=== PATIENT | male | born 1945 ===

== ENCOUNTER 2016-12-24 21:40 | Observation (INO) | payer MEDICARE, MEDICAID ==
[2016-12-24 21:40] VITALS: PULSE 71
[2016-12-24 21:49] VITALS: BMI 25.8
[2016-12-24] MEDS ORDERED: Albuterol-Ipratrop 3 mg / 0.5 (3 ml) UD IH STA (21:54)
[2016-12-24] MEDS ORDERED: DiphenhydrAMINE 50 mg/ml Inj IVP ONE (21:57)
[2016-12-24] MEDS ORDERED: HYDROmorphone 1 mg/ml ISec IVP STA (21:57)
[2016-12-24 22:20] LABS: ADD MANUAL DIFF? NO
[2016-12-24 22:28] LABS: BASO # 0.01 K/mm3 (0.0-2.0); BASO % 0.2 % (0.0-3.0); EOS % 0.2 % (1.5-5.0); GRAN # 3.88 (1.4-6.5); GRAN % 70.5 % (50.0-68.0); HEMATOCRIT 38.5 % (42.0-52.0); LYMPH # 1.2 (1.2-3.4); LYMPH % 20.9 % (22.0-35.0); MEAN CELL VOLUME 86.3 fL (80.0-105.0); MEAN CORPUSCULAR HEMOGLOBIN 31.8 pg (25.0-35.0); MEAN CORPUSCULAR HGB CONC 36.9 g/dl (31.0-37.0); MEAN PLATELET VOLUME 11.1 fl (7.0-11.0); MONO # 0.5 (0.1-0.6); MONO % 8.2 % (1.0-6.0); PLATELET COUNT 152 10^3/uL (120.0-450.0); RED CELL DISTRIBUTION WIDTH 12.8 % (11.5-14.5); WHITE BLOOD COUNT 5.5 10^3/ul (4.5-11.0)
--- NOTE | 2016-12-24 22:31 | ED PDOC ---
Arrival/HPI - General Chief Complaint: Abdominal Pain Time Seen by Provider: 12/24/16 21:41 Historian: Patient - History of Present Illness Narrative History of Present Illness (Text): 12/24/16 22:23 Ephraim Villarreal is a 71 year old male, with a history of bronchitis, pneumonia, alcohol abuse, colon polyps, and diverticulosis, presents to the emergency department complaining of abdominal pain associated with nausea and vomiting for past hour. Patient also reports of some difficulty breathing. Denies any chest pain. Admits to drinking alcohol yesterday. Denies fever, chills, headache , dizziness, diarrhea, back pain, urinary symptoms, or any other complaints at this time. Time/Duration: 1 hour Symptom Course: Unchanged Activities at Onset: Light Context: Home Past Medical History - Provider Review Nursing Documentation Reviewed: Yes - Past History Past History: No Previous - Infectious Disease Hx of Infectious Diseases: None - Tetanus Immunization Tetanus Immunization: Unknown - Past Medical History Past Medical History: No Previous - Cardiac Hx Pacemaker: No - Pulmonary Hx Bronchitis: Yes Hx Pneumonia: Yes - Neurological Hx Paralysis: No - HEENT Hx HEENT Disorder: Yes (Wears glasses. Hx of left eye sx.) - Renal Hx Renal Disorder: No - Endocrine/Metabolic Hx Endocrine Disorders: No - Hematological/Oncological Hx Blood Transfusions: No Hx Blood Transfusion Reaction: No - Integumentary Hx Dermatological Disorder: No Other/Comment: TATTOOS - Musculoskeletal/Rheumatological Hx Musculoskeletal Disorders: Yes - Gastrointestinal Other/Comment: colon polyps,diverticulosis - Genitourinary/Gynecological Hx Genitourinary Disorders: No - Psychiatric Hx Emotional Abuse: No Hx Physical Abuse: No Hx Substance Use: No - Surgical History Hx Orthopedic Surgery: Yes (Left foot sx.) Other/Comment: COLON POLYPS REMOVED - Anesthesia Hx Anesthesia: Yes Hx Anesthesia Reactions: No Hx Malignant Hyperthermia: No - Suicidal Assessment Feels Threatened In Home Enviroment: No Family/Social History - Physician Review Nursing Documentation Reviewed: Yes Family/Social History: No Known Family HX Smoking Status: Current Some Days Smoker Hx Alcohol Use: Yes (QUIT 11/26) Hx Substance Use: No Hx Substance Use Treatment: Yes (history of ETOH, no use x 1 year) Allergies/Home Meds Allergies/Adverse Reactions: Allergies oxycodone HCl [From Percocet] Allergy (Verified 12/24/16 21:51) RASH Home Medications: Home Meds Medication Instructions Recorded Confirmed No Known Home Med 09/27/16 12/24/16 Review of Systems - Physician Review All systems were reviewed & negative as marked: Yes - Review of Systems Constitutional: Normal. absent: Fatigue, Fevers Respiratory: SOB. absent: Cough, Sputum Cardiovascular: absent: Chest Pain Gastrointestinal: Abdominal Pain, Nausea, Vomiting. absent: Diarrhea Neurological: Normal. absent: Headache, Dizziness Psychiatric: Normal Physical Exam Vital Signs Reviewed: Yes Vital Signs Temp Pulse Resp BP Pulse Ox 12/25/16 02:29 98.0 F 80 16 98 12/25/16 01:11 98.0 F 78 16 143/89 97 12/24/16 23:42 97.8 F 80 16 145/89 98 Temperature: Afebrile Blood Pressure: Normal Pulse: Regular Respiratory Rate: Normal Appearance: Positive for: Well-Appearing, Non-Toxic, Comfortable Pain Distress: None Mental Status: Positive for: Alert and Oriented X 3 - Systems Exam Head: Present: Atraumatic, Normocephalic Extroacular Muscles: Present: EOMI Conjunctiva: Present: Normal Respiratory/Chest: Present: Decreased Breath Sounds (decreased breath sounds bilaterally ). No: Respiratory Distress, Accessory Muscle Use Cardiovascular: Present: Regular Rate and Rhythm, Normal S1, S2. No: Murmurs Abdomen: Present: Tenderness (left upper quadrant tenderness ), Normal Bowel Sounds. No: Distention, Peritoneal Signs Upper Extremity: Present: Normal Inspection. No: Cyanosis, Edema Lower Extremity: Present: Normal Inspection. No: Edema Neurological: Present: GCS=15, CN II-XII Intact, Speech Normal Skin: Present: Warm, Dry, Normal Color. No: Rashes Psychiatric: Present: Alert, Oriented x 3, Normal Insight, Normal Concentration Medical Decision Making ED Course and Treatment: 12/24/16 22:33 Impression: A 71 year old male who presents to the ed for 1 hour duration of abdominal pain associated with nausea and vomiting. Also notes of mild difficulty breathing. Plan: -- EKG -- CT abdomen pelvis -- Labs, cardiac enzymes -- CXR -- Benadryl -- Dilaudid -- Duoneb -- Urinalysis Progress Notes: 12/24/16 22:35 EKG reviewed by me: NSR @ 78 bpm with premature supraventricular complexes. Left axis deviation. Right bundle branch block. 12/25/16 00:35 CT abdomen pelvis reviewed: IMPRESSION: No acute process in the abdomen and pelvis. Normal appendix is seen. Scattered diverticulosis without diverticulitis. No obstructive uropathy. Fatty liver, with cirrhotic changes associated and recannulization of the periumbilical vein. 12/25/16 01:26 Case discussed with who is aware and agrees with the plan to admit patient to [facility] [place] for abdominal pain. Accepts patient under his service. - Lab Interpretations Lab Results: 12/24/16 22:15 12/24/16 22:15 Lab Results 12/25/16 00:02: Urine Color Yellow, Urine Appearance Slight-cloudy, Urine pH 6.0 , Ur Specific [place] >= 1.030, Urine Protein Trace H, Urine Glucose (UA) Negative, Urine Ketones >=80, Urine Blood Large H, Urine Nitrate Negative, Urine Bilirubin Negative, Urine Urobilinogen 0.2, Ur Leukocyte Esterase Negative , Urine RBC 5 - 10, Urine WBC 0 - 2, Ur Epithelial Cells 0 - 2 12/24/16 22:15: WBC 5.5 D, RBC 4.46, Hgb 14.2, Hct 38.5 L, MCV 86.3, MCH 31.8, MCHC 36.9, RDW 12.8, Plt Count 152, MPV 11.1 H, Gran % 70.5 H, Lymph % (Auto) 20.9 L, [place] % (Auto) 8.2 H, Eos % (Auto) 0.2 L, Baso % (Auto) 0.2, Gran # 3.88 , Lymph # 1.2, [place] # 0.5, Eos # 0.0, Baso # 0.01, PT 11.8, INR 1.09 H, APTT 24.6, Sodium 137, Potassium 3.5 L, Chloride 95 L, Carbon Dioxide 24, Anion Gap 22 H, BUN 16, Creatinine 0.8, Est GFR ( Amer) > 60, Est GFR (Non-Af Amer ) > 60, Random Glucose 78, Calcium 8.9, Total Bilirubin 1.2, AST 38, ALT 33, Alkaline Phosphatase 72, Lactate Dehydrogenase 470, Total Creatine Kinase 375 H , CK-MB (CK-2) 5.6 H, CK-MB (CK-2) % 1.5 L, Troponin I 0.02 D, Total Protein 7.7, Albumin 4.3, Globulin 3.5, Albumin/Globulin Ratio 1.2, Amylase 101, Lipase 54 I have reviewed the lab results: Yes - RAD Interpretation Narrative RAD Interpretations (Text): EXAM: CT Abdomen and Pelvis Without Intravenous Contrast FINDINGS: Artifacts: Motion artifact does moderately limit the sensitivity of this examination. Lower thorax: There is severe atherosclerotic calcification of the coronary arteries. There is a pulmonary parenchymal calcification consistent with remote granulomatous organism exposure located in the right base lung bases otherwise clear. ABDOMEN: Liver: There is a nodular contour to the liver and hypertrophy of the caudate lobe, consistent with cirrhosis. There is a diffuse moderate decrease in hepatic parenchymal density, consistent with moderate fatty infiltration. Gallbladder and bile ducts: Unremarkable. No calcified stones. No ductal dilation. No significant wall thickening. Pancreas: The pancreas appears normal. No ductal dilation. Spleen: The spleen is normal. Adrenals: Unremarkable. No mass. Kidneys and ureters: No obstructing renal stones or hydronephrosis. No solid mass. Normal appearance of both ureters, and renal pelvises. Stomach and bowel: The stomach is normal. Scattered colonic diverticulosis without definite diverticulitis. The small bowel loops appear within normal limits, no signs of wall thickening, mucosal edema, or bowel distention. Appendix: A normal appendix is identified. PELVIS: Bladder: Unremarkable. No stones. Reproductive: Unremarkable as visualized. ABDOMEN and PELVIS: Intraperitoneal space: Unremarkable. No free air. No significant fluid collection. Bones/joints: The spine demonstrates moderate degenerative changes at multiple levels. Benign bony lesion with matrix calcification of the proximal left femur enchondroma versus hemangioma unchanged from prior exam. No acute fracture. No dislocation. Soft tissues: Small fat-containing paraumbilical hernia is present. There is recannulization of the periumbilical vein is present. Vasculature: The aorta demonstrates moderate atherosclerotic calcification. Lymph nodes: Unremarkable. No enlarged lymph nodes. IMPRESSION: No acute process in the abdomen and pelvis. Normal appendix is seen. Scattered diverticulosis without diverticulitis. No obstructive uropathy. Fatty liver, with cirrhotic changes associated and recannulization of the periumbilical vein. Radiology Orders: 12/24/16 21:53 ABD & PELVIS W/O PO OR IV CONT [CT] Stat 12/24/16 21:54 CHEST PORTABLE [RAD] Stat Staff Nurse Anesthetist: Radiologist - EKG Interpretation Interpreted by ED Physician: Yes Type: 12 lead EKG - Medication Orders Current Medication Orders: Discontinued Medications Albuterol/Ipratropium (Duoneb 3 Mg/0.5 Mg (3 Ml) Ud) 3 ml IH STAT STA Stop: 12/24/16 21:55 Last Admin: 12/24/16 22:15 Dose: 3 ML Albuterol/Ipratropium (Duoneb 3 Mg/0.5 Mg (3 Ml) Ud) 3 ml IH Q4H PRN PRN Reason: Shortness of Breath Stop: 12/25/16 05:10 Diazepam (Valium) 5 mg PO ONCE ONE PRN Reason: Protocol Stop: 12/25/16 07:53 Last Admin: 12/25/16 08:00 Dose: Not Given Non-Admin Reason: Patient Refused Diphenhydramine HCl (Benadryl) 25 mg IVP ONCE ONE Stop: 12/24/16 21:58 Last Admin: 12/24/16 22:15 Dose: 25 MG IVP Administration Document 12/24/16 22:15 [email or web address] (Rec: 12/24/16 22:[id number]) Charges for Administration # of IVP Administrations 1 Hydromorphone HCl (Dilaudid) 1 mg IVP STAT STA Stop: 12/24/16 21:58 Last Admin: 12/24/16 22:15 Dose: 1 MG IVP Administration Document 12/24/16 22:15 [email or web address] (Rec: 12/24/16 22:[id number]) Charges for Administration # of IVP Administrations 1 Sodium Chloride (Sodium Chloride 0.9%) 1,000 mls @ 100 mls/hr IV .Q10H STA Stop: 12/25/16 11:08 Last Admin: 12/25/16 01:23 Dose: 100 MLS/HR eMAR Start Stop Document 12/25/16 01:23 [email or web address] (Rec: 12/25/16 01:[id number]) Intravenous Solution Start Date 12/25/16 Start Time 01:23 Potassium Chloride (K-Dur 20 Meq Er Tab) 40 meq PO STAT STA Stop: 12/25/16 01:07 Last Admin: 12/25/16 01:23 Dose: 40 MEQ - Scribe Statement The provider has reviewed the documentation as recorded by the Yesi Alcala Provider Attestation: All medical record entries made by the Yesi were at my direction and personally dictated by me. I have reviewed the chart and agree that the record accurately reflects my personal performance of the history, physical exam, medical decision making, and the department course for this patient. I have also personally directed, reviewed, and agree with the discharge instructions and disposition. Disposition/Present on Arrival - Present on Arrival Any Indicators Present on Arrival: No History of DVT/PE: No History of Uncontrolled Diabetes: No Urinary Catheter: No History of Decub. Ulcer: No History Surgical Site Infection Following: None - Disposition Have Diagnosis and Disposition been Completed?: Yes Diagnosis: Abdominal pain, Nausea Disposition: HOSPITALIZED Disposition Time: :25 Condition: GOOD
[2016-12-24 22:35] LABS: ALB/GLOB RATIO 1.2 (1.1-1.8); ALKALINE PHOSPHATASE 72 U/L (38-133); ALT/SGPT 33 U/L (7-56); AMYLASE 101 U/L (35-125); AST/SGOT 38 U/L (15-59); BILIRUBIN,TOTAL 1.2 mg/dL (0.2-1.3); BLOOD UREA NITROGEN 16 mg/dL (7-21); CALCIUM 8.9 mg/dL (8.4-10.5); CARBON DIOXIDE 24 mmol/L (21-33); CHLORIDE 95 mmol/L (98-107); GFR AFRICAN-AMERICAN > 60; GLUCOSE,RANDOM 78 mg/dL (70-110); LIPASE 54 U/L (23-300); POTASSIUM 3.5 mmol/L (3.6-5.0); SODIUM 137 mmol/L (132-148); TOTAL PROTEIN 7.7 g/dL (5.8-8.3)
[2016-12-24 22:38] LABS: INR 1.09 (0.93-1.08); PARTIAL THROMBOPLASTIN TIME 24.6 Seconds (23.7-30.8)
[2016-12-24 22:46] LABS: TROPONIN I 0.02 ng/mL
[2016-12-25 00:50] LABS: URINE BILIRUBIN NEGATIVE (NEGATIVE); URINE BLOOD LARGE (NEGATIVE); URINE GLUCOSE (UA) NEGATIVE (NEGATIVE); URINE KETONE >=80 mg/dL (NEGATIVE); URINE LEUKOCYTE ESTERASE NEGATIVE Leu/uL (NEGATIVE); URINE PROTEIN TRACE mg/dL (<30 mg/dL); URINE UROBILINOGEN 0.2 E.U./dL (<1 E.U./dL)
[2016-12-25 00:54] LABS: URINE APPEARANCE SLIGHT-CLOUDY (CLEAR); URINE COLOR YELLOW (YELLOW)
[2016-12-25 01:04] LABS: URINE EPITHELIAL CELLS 0 - 2 /hpf (0-5); URINE WBC 0 - 2 /hpf (0-6)
[2016-12-25] MEDS ORDERED: Potassium Chloride 20 mEq ER Tab PO STA (01:06)
[2016-12-25] MEDS ORDERED: Sodium Chloride 0.9% 1,000 ML IV STA (01:09)
[2016-12-25] MEDS ORDERED: Albuterol-Ipratrop 3 mg / 0.5 (3 ml) UD IH PRN (01:09)
[2016-12-25 04:55] VITALS: RESP 18
[2016-12-25 08:31] VITALS: BP 144/82; PULSE 72; TEMP 98; O2SAT 95
--- NOTE | 2016-12-25 08:31 | RAD ---
HISTORY: cp COMPARISON: 04/23/2016 FINDINGS: LUNGS: No active pulmonary disease. PLEURA: No significant pleural effusion identified, no pneumothorax apparent. CARDIOVASCULAR: Normal. OSSEOUS STRUCTURES: No significant abnormalities. VISUALIZED UPPER ABDOMEN: Normal. OTHER FINDINGS: None. IMPRESSION: No active disease.
--- NOTE | 2016-12-25 08:37 | CP.PCM.PN ---
Subjective - Date & Time of Evaluation Date of Evaluation: 12/25/16 Time of Evaluation: 08:20 - Subjective Subjective: PT was admitted for abdominal pain . w/u and manegement still in progress, pt wants to sign AMA. Objective - Vital Signs/Intake and Output Vital Signs (last 24 hours): Temp Pulse Resp BP Pulse Ox 98 F 72 18 144/82 95 12/25/16 08:00 12/25/16 08:00 12/25/16 08:00 12/25/16 08:00 12/25/16 08:00 - Medications Medications: Current Medications Sodium Chloride (Sodium Chloride 0.9%) 1,000 mls @ 100 mls/hr IV .Q10H STA Stop: 12/25/16 11:08 Last Admin: 12/25/16 01:23 Dose: 100 mls/hr - Labs Labs: PT 11.8 Seconds (9.9-11.8) 12/24/16 22:15 INR 1.09 (0.93-1.08) H 12/24/16 22:15 APTT 24.6 Seconds (23.7-30.8) 12/24/16 22:15 - Constitutional Appears: No Acute Distress - Head Exam Head Exam: NORMOCEPHALIC - Eye Exam Eye Exam: Normal appearance Pupil Exam: PERRL - ENT Exam ENT Exam: Mucous Membranes Moist - Neck Exam Neck Exam: Full ROM - Respiratory Exam Respiratory Exam: NORMAL BREATHING PATTERN - Cardiovascular Exam Cardiovascular Exam: REGULAR RHYTHM - GI/Abdominal Exam GI & Abdominal Exam: Soft, Normal Bowel Sounds - Rectal Exam Rectal Exam: Deferred - Extremities Exam Extremities Exam: Full ROM - Neurological Exam Neurological Exam: Alert, Awake, CN II-XII Intact, Oriented x3 - Psychiatric Exam Psychiatric exam: Normal Affect - Skin Skin Exam: Dry, Warm Assessment and Plan - Assessment and Plan (Free Text) Assessment: abdominal pain. AMA. Plan: RISK OF CONTINUED PAIN. EXPLAINED TO PT. PMD AWARE.
--- NOTE | 2016-12-25 09:43 | CT ---
PROCEDURE: CT Abdomen and Pelvis without intravenous contrast HISTORY: abd pain COMPARISON: 09/27/2016 TECHNIQUE: Without contrast.. Contrast Dose: 0 Radiation dose: Total exam DLP = 389.24 mGy-cm. This CT exam was performed using one or more of the following dose reduction techniques: Automated exposure control, adjustment of the mA and/or kV according to patient size, and/or use of iterative reconstruction technique. FINDINGS: LOWER THORAX: Ground-glass opacity in visualized portion of left lower lobe. Possible early pneumonia. Followup advised. LIVER: Nodular contour consistent with hepatic cirrhosis. Diffuse hepatic steatosis. No hepatic mass. No biliary ductal dilatation. GALLBLADDER AND BILE DUCTS: Unremarkable. PANCREAS: Unremarkable. No gross lesion or ductal dilatation. SPLEEN: Unremarkable. ADRENALS: Unremarkable. No mass. KIDNEYS AND URETERS: Unremarkable. No hydronephrosis. No solid mass. VASCULATURE: Unremarkable. No aortic aneurysm. BOWEL: Diverticulosis of the sigmoid colon without evidence of diverticulitis. Scattered colonic diverticulae elsewhere, most prominently in the ascending colon. Previously identified mural thickening of the cecum and ascending colon is no longer evident. Consistent with resolved nonspecific colitis. No mechanical bowel obstruction. No other abnormal bowel loops are identified. APPENDIX: Unremarkable. Normal appendix. PERITONEUM: Unremarkable. No free fluid. No free air. LYMPH NODES: Unremarkable. No enlarged lymph nodes. BLADDER: Unremarkable. 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 Incidentally noted hemangioma of the left side of the L3 vertebra extending into the pedicle. More extensive hemangiomatous change of the L4 vertebral body, diffuse. Posterior elements are spared. OTHER FINDINGS: None. IMPRESSION: Hepatic cirrhosis. Hepatic steatosis. No acute abnormality. No evidence of colitis, diverticulitis, pancreatitis, cholecystitis. No bowel obstruction. Minor osseous findings as above. Preliminary interpretation of this examination was reported by [employer] at 11:29 p.m. on 12/24/2016. There is concurrence of this report with the preliminary interpretation.
--- NOTE | 2016-12-25 11:26 | CARD ---
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
--- NOTE | 2017-01-30 19:37 | HP ---
HISTORY OF PRESENT ILLNESS: The patient was admitted through the Emergency Department on 12/25/2016 w ith abdominal pain. He signed out AMA before I was able to see him. Blue Post JD, MD cc: [id number] TT: 01/30/2017 19:36:52 dn
--- NOTE | 2017-01-30 21:14 | DS ---
HOSPITAL COURSE: The patient is a 71-year-old male admitted through the Emergency Room on 12/25/2016. The patient signed out AMA before I was able to see him. Blue Post JD, MD cc: [id number] TT: 01/30/2017 21:13:34 rn
== END 2016-12-25 09:24 | disposition left against medical advice (07) ==
LOC: ED 21:40 → ERH 12-25 01:28 → 3RSO 12-25 02:38
PROVIDERS: ADMIT Internal Medicine; ATTEND Internal Medicine
DX: K76.0 Fatty (change of) liver, not elsewhere classified (principal); K57.90 Diverticulosis of intestine, part unspecified, without perforation or abscess without bleeding; Z86.010 Personal history of colon polyps; Z87.01 Personal history of pneumonia (recurrent); J40 Bronchitis, not specified as acute or chronic; L81.8 Other specified disorders of pigmentation; Z88.5 Allergy status to narcotic agent; R40.2412 Glasgow coma scale score 13-15, at arrival to emergency department
CPT/HCPCS: 71010; 74176; 80053; 81001; 82150; 82550; 82553; 83615; 83690; 84484; 85025; 85610; 85730; 93005; 94640; 96374; 96375; 99284; G0378; J1170; J1200; J7040

== ENCOUNTER 2017-05-05 09:12 | Emergency (ER) | payer MEDICARE, MEDICAID ==
[2017-05-05 09:12] VITALS: PULSE 71; BMI 25.8
[2017-05-05] MEDS ORDERED: Albuterol-Ipratrop 3 mg / 0.5 (3 ml) UD IH STA (09:28)
[2017-05-05 09:29] VITALS: RESP 18
--- NOTE | 2017-05-05 09:31 | ED PDOC ---
Arrival/HPI - General Chief Complaint: Chest Pain Time Seen by Provider: 05/05/17 09:27 Historian: Patient - History of Present Illness Narrative History of Present Illness (Text): 05/05/17 09:28 A 71 year old male whose past medical history includes, bronchitis, pneumonia, alcohol abuse, colon polyps, and diverticulosis, presents to the emergency department complaining of 2 day duration dry, unproductive cough. The patient states that after coughing for prolonged periods of time, he develops chest discomfort and a headache. The patient denies chills, dizziness, abdominal pain , nausea, vomiting, diarrhea, or any other complaint. Time/Duration: Other (2 Days) Symptom Onset: Sudden Symptom Course: Unchanged Activities at Onset: Rest, Light Context: Home Past Medical History - Provider Review Nursing Documentation Reviewed: Yes - Past History Past History: No Previous - Infectious Disease Hx of Infectious Diseases: None - Tetanus Immunization Tetanus Immunization: Unknown - Past Medical History Past Medical History: No Previous - Cardiac Hx Cardiac Disorders: No Hx Pacemaker: No - Pulmonary Hx Respiratory Disorders: Yes Hx Bronchitis: Yes Hx Pneumonia: Yes - Neurological Hx Neurological Disorder: No Hx Paralysis: No - HEENT Hx HEENT Disorder: Yes (Wears glasses. Hx of left eye sx.) - Renal Hx Renal Disorder: No - Endocrine/Metabolic Hx Endocrine Disorders: No - Hematological/Oncological Hx Blood Transfusions: No Hx Blood Transfusion Reaction: No - Integumentary Hx Dermatological Disorder: No - Musculoskeletal/Rheumatological Hx Musculoskeletal Disorders: No - Gastrointestinal Hx Gastrointestinal Disorders: Yes Other/Comment: colon polyps,diverticulosis - Genitourinary/Gynecological Hx Genitourinary Disorders: No - Psychiatric Hx Psychophysiologic Disorder: Yes Hx Depression: Yes Hx Emotional Abuse: No Hx Physical Abuse: No Hx Substance Use: No - Surgical History Hx Eye Surgery: Yes Hx Orthopedic Surgery: Yes (Left foot sx.) Other/Comment: COLON POLYPS REMOVED, hernia - Anesthesia Hx Anesthesia: Yes Hx Anesthesia Reactions: No Hx Malignant Hyperthermia: No - Suicidal Assessment Feels Threatened In Home Enviroment: No Family/Social History - Physician Review Nursing Documentation Reviewed: Yes Family/Social History: No Known Family HX Smoking Status: Former Smoker Hx Alcohol Use: Yes Frequency of alcohol use: Socially Hx Substance Use: No Hx Substance Use Treatment: Yes (history of ETOH, no use x 1 year) Allergies/Home Meds Allergies/Adverse Reactions: Allergies oxycodone HCl [From Percocet] Allergy (Verified 05/05/17 09:19) RASH Physical Exam - Physical Exam Narrative Physical Exam (Text): - Review of Systems Constitutional: Normal. absent: Fatigue, Weight Change, Fevers Eyes: Normal ENT: Normal Respiratory: (+) Cough absent: SOB, Sputum Cardiovascular: (+) Chest pain after a prolonged period of coughing. absent: Palpitations, Syncope Gastrointestinal: Normal absent: Abdominal pain, Diarrhea, Nausea, Vomiting Genitourinary: Normal. absent: Dysuria, Frequency, Hematuria Musculoskeletal: Normal. absent: Arthralgias, Back Pain, Neck Pain Skin: Normal Neurological: (+) Headache after a prolonged period of coughing. absent: Focal Weakness Endocrine: Normal Hemo/Lymphatic: Normal Psychiatric: Normal - Physical exam Patient appears age appropriate, speaking full sentences without difficulty - Systems Exam Head: Present: Atraumatic, Normocephalic Pupils: Present: PERRL Extraocular Muscles: Present: EOMI Conjunctiva: Present: Normal Mouth: Present: Moist Mucous Membranes Neck: Present: Normal Range of Motion. No: MIDLINE TENDERNESS, Paraspinal Tenderness Respiratory/Chest: Present: Clear to Auscultation, Good Air Exchange. No: Respiratory Distress, Accessory Muscle Use, Tachypnic Cardiovascular: Present: Regular Rate and Rhythm, Normal S1, S2, Peripheral Pulses Present. No: Murmurs Abdomen: Present: Normal Bowel Sounds, No: Tenderness, Peritoneal Signs, Rebound, Guarding, Distention Back: Present: Normal Inspection. No: Midline Tenderness, Paraspinal Tenderness Upper Extremity: Present: Normal Inspection. No: Cyanosis, Edema Lower Extremity: Present: Normal Inspection. No: Edema Neurological: Present: GCS=15, Speech Normal, cranial nerves II through XII fully intact with no cerebellar abnormality, neuro-sensory fully intact. No focal neurological deficits. Skin: Present: Warm, Dry, Normal Color. No: Rashes Lymphatic: Present: OX3, NI, NC Psychiatric: Present: Alert, Oriented x 3, Normal Insight, Normal Concentration 05/05/17 09:36 Vital Signs Reviewed: Yes Vital Signs Temp Pulse Resp BP Pulse Ox 05/05/17 09:28 99.8 F H 96 H 18 151/78 H 97 Temperature: Febrile Blood Pressure: Hypertensive Pulse: Tachycardic Respiratory Rate: Normal Appearance: Positive for: Well-Appearing, Non-Toxic, Comfortable Pain Distress: None Mental Status: Positive for: Alert and Oriented X 3 Medical Decision Making ED Course and Treatment: 05/05/17 09:37 Impression: A 71 year old male with 2 day duration dry, unproductive cough. After prolonged periods of coughing, patient developed a headache and chest discomfort. On exam , no acute findings. Differential Diagnosis included but are not limited to: PNA vs. Bronchitis Plan: -- EKG -- Chest X-ray -- Blood Culture -- Labs -- Duoneb -- Reassess and disposition Prior Visits: Notes and results from previous visits were reviewed. Patient was last seen in the emergency department on 12/25/16 for abdominal pain. Progress Notes: EKG: Ordered, reviewed, and independently interpreted the EKG. Rate : 100 BPM Rhythm : Sinus Tachycardia Interpretation : No ST-segment elevations 05/05/17 09:52 Chest X-ray Dictator : Placido Witt MD Report Date : 05/05/2017 09:47:41 IMPRESSION: No active disease. 05/05/17 10:39: Based on patients history and physical, chest discomfort does not appear to be of cardiac origin. Discussed case in detail with Dr. Trujillo (PMD). Stated patient should come to the office this afternoon for further workup and follow up. 05/05/17 11:15 pt in no distress states he feels comfortable being dc'd home with outpatient f/u at this time Pt states he understands to return to the ER right away for new or worsening symptoms or for inability to f/u with PMD or specialist as instructed. Patient states that he fully agrees with and understands discharge instructions. States that he agrees with the plan and disposition. Verbalized and repeated discharge instructions and plan. I have given the patient opportunity to ask any additional questions. - Lab Interpretations Lab Results: 05/05/17 09:40 05/05/17 09:40 Lab Results 05/05/17 09:40: PT 12.1 H, INR 1.12 H, APTT 29.2 05/05/17 09:40: Sodium 138, Potassium 3.4 L, Chloride 102, Carbon Dioxide 25, Anion Gap 14, BUN 12, Creatinine 0.7, Est GFR ( Amer) > 60, Est GFR (Non- Af Amer) > 60, Random Glucose 107, Calcium 9.0, Total Bilirubin 1.1, AST 24, ALT 29, Alkaline Phosphatase 72, Lactate Dehydrogenase 387, Total Creatine Kinase 215, Troponin I < 0.01 D, NT-Pro-B Natriuret Pep 343, Total Protein 7.3 , Albumin 4.2, Globulin 3.1, Albumin/Globulin Ratio 1.4 05/05/17 09:40: WBC 6.0, RBC 4.25, Hgb 13.5 L, Hct 37.7 L, MCV 88.7, MCH 31.8, MCHC 35.8, RDW 12.5, Plt Count 125, MPV 11.1 H, Gran % 78.0 H, Lymph % (Auto) 12.9 L, [place] % (Auto) 7.3 H, Eos % (Auto) 1.5, Baso % (Auto) 0.3, Gran # 4.67, Lymph # 0.8 L, [place] # 0.4, Eos # 0.1, Baso # 0.02 I have reviewed the lab results: Yes - RAD Interpretation Radiology Orders: 05/05/17 09:29 CHEST PORTABLE [RAD] Stat - Medication Orders Current Medication Orders: Discontinued Medications Albuterol/Ipratropium (Duoneb 3 Mg/0.5 Mg (3 Ml) Ud) 3 ml IH STAT STA Stop: 05/05/17 09:29 Last Admin: 05/05/17 09:46 Dose: 3 ml Ketorolac Tromethamine (Toradol) 15 mg IVP STAT STA Stop: 05/05/17 10:32 Last Admin: 05/05/17 10:47 Dose: 15 mg - Scribe Statement The provider has reviewed the documentation as recorded by the Yesi Andrew Provider Scribe Attestation: All medical record entries made by the Yesi were at my direction and personally dictated by me. I have reviewed the chart and agree that the record accurately reflects my personal performance of the history, physical exam, medical decision making, and the department course for this patient. I have also personally directed, reviewed, and agree with the discharge instructions and disposition. Disposition/Present on Arrival - Present on Arrival Any Indicators Present on Arrival: No History of DVT/PE: No History of Uncontrolled Diabetes: No Urinary Catheter: No History of Decub. Ulcer: No History Surgical Site Infection Following: None - Disposition Have Diagnosis and Disposition been Completed?: Yes Diagnosis: Cough Disposition: HOME/ ROUTINE Disposition Time: 11:16 Patient Plan: Discharge Condition: GOOD Discharge Instructions (ExitCare): Acute Cough (ED) Additional Instructions: PLEASE RETURN TO THE EMERGENCY DEPARTMENT FOR NEW OR WORSENING SYMPTOMS. RETURN RIGHT AWAY IF YOU CANNOT FOLLOW UP WITH YOUR PRIMARY CARE DOCTOR, CLINIC, OR SPECIALIST IN 1-2 DAYS[address] REPORT TO [address] TRUJILLO'S OFFICE THIS AFTERNOON Prescriptions: Azithromycin [Zithromax] 250 mg PO DAILY #1 packet Benzonatate [Tessalon Perle] 100 mg PO Q8 PRN #12 capsule PRN Reason: Cough Referrals: Osbaldo Trujillo MD [Family Provider] - Follow up with primary Forms: [facility] (Kiswahili)
--- NOTE | 2017-05-05 09:49 | RAD ---
HISTORY: cough COMPARISON: 01/20/2017 FINDINGS: LUNGS: No active pulmonary disease. PLEURA: No significant pleural effusion identified, no pneumothorax apparent. CARDIOVASCULAR: Normal. OSSEOUS STRUCTURES: No significant abnormalities. VISUALIZED UPPER ABDOMEN: Normal. OTHER FINDINGS: Mild aortic tortuosity IMPRESSION: No active disease.
[2017-05-05 09:57] LABS: BASO # 0.02 K/mm3 (0.0-2.0); BASO % 0.3 % (0.0-3.0); EOS # 0.1 (0.0-0.7); EOS % 1.5 % (1.5-5.0); GRAN # 4.67 (1.4-6.5); HEMATOCRIT 37.7 % (42.0-52.0); LYMPH # 0.8 (1.2-3.4); LYMPH % 12.9 % (22.0-35.0); MEAN CELL VOLUME 88.7 fl (80.0-105.0); MEAN CORPUSCULAR HEMOGLOBIN 31.8 pg (25.0-35.0); MEAN CORPUSCULAR HGB CONC 35.8 g/dl (31.0-37.0); MEAN PLATELET VOLUME 11.1 fl (7.0-11.0); MONO # 0.4 (0.1-0.6); MONO % 7.3 % (1.0-6.0); RED CELL DISTRIBUTION WIDTH 12.5 % (11.5-14.5)
[2017-05-05 10:08] LABS: INR 1.12 (0.93-1.08); PARTIAL THROMBOPLASTIN TIME 29.2 Seconds (23.7-30.8)
[2017-05-05 10:09] LABS: ALB/GLOB RATIO 1.4 (1.1-1.8); ALKALINE PHOSPHATASE 72 U/L (38-133); ALT/SGPT 29 U/L (7-56); AST/SGOT 24 U/L (15-59); BILIRUBIN,TOTAL 1.1 mg/dL (0.2-1.3); BLOOD UREA NITROGEN 12 mg/dL (7-21); CARBON DIOXIDE 25 mmol/L (21-33); CHLORIDE 102 mmol/L (98-107); GFR AFRICAN-AMERICAN > 60; GLUCOSE,RANDOM 107 mg/dL (70-110); POTASSIUM 3.4 mmol/L (3.6-5.0); SODIUM 138 mmol/L (132-148); TOTAL PROTEIN 7.3 g/dL (5.8-8.3)
[2017-05-05 10:25] LABS: TROPONIN I < 0.01 ng/mL
[2017-05-05 11:36] VITALS: BP 149/63; PULSE 90; TEMP 97.9; O2SAT 98
--- NOTE | 2017-05-05 17:06 | CARD ---
APPROVED REPORT EKG Measurement Heart [id number] <Conclusion> Sinus tachycardia Right bundle branch block Left anterior fascicular block Bifascicular block Abnormal ECG
== END 2017-05-05 11:37 | disposition home or self-care (01) ==
LOC: ED 09:12
DX: R05 Cough (principal)
CPT/HCPCS: 71010; 80053; 82550; 83615; 83880; 84484; 85025; 85610; 85730; 87040; 93005; 96374; 99283; J1885

== ENCOUNTER 2017-06-18 01:09 | Emergency (ER) | payer MEDICARE, OTHER ==
[2017-06-18 01:09] VITALS: PULSE 71; BMI 25.8
[2017-06-18 01:29] VITALS: RESP 18; TEMP 97.7
--- NOTE | 2017-06-18 02:17 | ED PDOC ---
Arrival/HPI <Ivania Cordoba - Last Filed: 06/18/17 02:38> <Gianni Amezquita - Last Filed: 06/18/17 04:55> - General Chief Complaint: Abdominal Pain Time Seen by Provider: 06/18/17 01:43 - History of Present Illness Narrative History of Present Illness (Text): 72 year old male with a past medical history of diverticulosis, alcohol abuse, and non-compliance who presents with wretching, intermittent, crampy abdominal pain and distension that started after dinner (around 5:30 PM). He denies any flatus, vomiting, eating anything out of the ordinary, drinking alcohol in the past 6 months, or recent sick contacts. He denies any fever, chills, diarrhea, constipation, or hematochezia. He took Nexium without relief in his symptoms. He states he would probably feel better if he could vomit or pass some gas or stool. 06/18/17 02:17 06/18/17 02:31 (Ivania Cordoba) Past Medical History - Provider Review Nursing Documentation Reviewed: Yes - Past History Past History: No Previous - Infectious Disease Hx of Infectious Diseases: None - Tetanus Immunization Tetanus Immunization: Unknown - Past Medical History Past Medical History: No Previous - Cardiac Hx Cardiac Disorders: No Hx Pacemaker: No - Pulmonary Hx Respiratory Disorders: Yes Hx Bronchitis: Yes Hx Pneumonia: Yes - Neurological Hx Neurological Disorder: No Hx Paralysis: No - HEENT Hx HEENT Disorder: Yes (Wears glasses. Hx of left eye sx.) - Renal Hx Renal Disorder: No - Endocrine/Metabolic Hx Endocrine Disorders: No - Hematological/Oncological Hx Blood Disorders: No Hx Blood Transfusions: No Hx Blood Transfusion Reaction: No - Integumentary Hx Dermatological Disorder: No - Musculoskeletal/Rheumatological Hx Musculoskeletal Disorders: No - Gastrointestinal Hx Gastrointestinal Disorders: No Other/Comment: colon polyps,diverticulosis - Genitourinary/Gynecological Hx Genitourinary Disorders: No - Psychiatric Hx Psychophysiologic Disorder: Yes Hx Depression: Yes Hx Emotional Abuse: No Hx Physical Abuse: No Hx Substance Use: No - Surgical History Hx Eye Surgery: Yes Hx Orthopedic Surgery: Yes (Left foot sx.) Other/Comment: COLON POLYPS REMOVED, hernia - Anesthesia Hx Anesthesia: Yes Hx Anesthesia Reactions: No Hx Malignant Hyperthermia: No - Suicidal Assessment Feels Threatened In Home Enviroment: No <Ivania Cordoba - Last Filed: 06/18/17 02:38> Family/Social History - Physician Review Nursing Documentation Reviewed: Yes Family/Social History: No Known Family HX Smoking Status: Former Smoker Hx Alcohol Use: Yes Frequency of alcohol use: Socially Hx Substance Use: No Hx Substance Use Treatment: Yes (history of ETOH, no use x 1 year) <Ivania Cordoba - Last Filed: 06/18/17 02:38> Allergies/Home Meds <Ivania Cordoba - Last Filed: 06/18/17 02:38> <Gianni Amezquita - Last Filed: 06/18/17 04:55> Allergies/Adverse Reactions: Allergies oxycodone HCl [From Percocet] Allergy (Verified 06/18/17 01:30) RASH Review of Systems - Review of Systems Constitutional: absent: Weight Change, Fevers, Night Sweats Eyes: absent: Vision Changes, Photophobia, Eye Pain ENT: absent: Hearing Changes, Tinnitus, TMJ Pain Respiratory: absent: SOB, Cough, Sputum Cardiovascular: absent: Chest Pain, Palpitations, Edema Gastrointestinal: Abdominal Pain, Nausea. absent: Diarrhea, Vomiting Genitourinary Male: absent: Dysuria, Frequency Musculoskeletal: absent: Neck Pain Skin: Normal. absent: Rash, Pruritis Neurological: Normal. absent: Headache, Dizziness, Focal Weakness Endocrine: Normal. absent: Diaphoresis, Polyuria, Polydipsia Hemo/Lymphatic: absent: Adenopathy, Easy Bleeding, Easy Bruising Psychiatric: absent: Anxiety, Depression <Ivania Cordoba - Last Filed: 06/18/17 02:38> Physical Exam Temperature: Afebrile Blood Pressure: Normal Pulse: Regular Respiratory Rate: Normal Appearance: Positive for: Uncomfortable Pain Distress: Moderate - Systems Exam Head: Present: Atraumatic, Normocephalic Pupils: Present: PERRL Extroacular Muscles: Present: EOMI Conjunctiva: Present: Normal. No: Icteric Mouth: Present: Moist Mucous Membranes Respiratory/Chest: Present: Clear to Auscultation, Good Air Exchange. No: Respiratory Distress, Wheezes Cardiovascular: Present: Regular Rate and Rhythm, Normal S1, S2. No: Murmurs Abdomen: Present: Tenderness (diffusely), Other (bowel sounds gurgling). No: Peritoneal Signs, Rebound, McBurney's Point Tender Back: Present: Normal Inspection Upper Extremity: Present: Normal Inspection. No: Cyanosis, Edema Lower Extremity: Present: Normal Inspection. No: Edema, CALF TENDERNESS Neurological: Present: CN II-XII Intact, Speech Normal, Normal Cerebellar Funct Skin: Present: Warm, Dry, Normal Color Psychiatric: Present: Alert, Oriented x 3, Normal Insight <Ivania Cordoba - Last Filed: 06/18/17 02:38> Vital Signs Temp Pulse Resp BP Pulse Ox 06/18/17 02:55 97.7 F 78 18 114/67 95 06/18/17 01:26 97.7 F 86 18 133/84 Medical Decision Making <Ivania Cordoba - Last Filed: 06/18/17 02:38> - Lab Interpretations I have reviewed the lab results: Yes <Gianni Amezquita - Last Filed: 06/18/17 04:55> ED Course and Treatment: Plan: -- Abdomen and Pelvis with contrast -- Labs -- Pepcid, Morphine, Zofran, and IV fluids -- Reassess and Disposition 06/18/17 04:36 pt was seen and examined by myself with resident. agree c/ exam. concern for diverticular disease, mesenteric ischemia. ct consistent with enteritis. will give imodium, bentyl, zofran. no diverticulitis, less likely mesenteric ischemia. 06/18/17 04:43 06/18/17 04:43 3 minutes of smoking cessation performed (Gianni Amezquita) - Lab Interpretations Lab Results: 06/18/17 02:20 06/18/17 02:20 Lab Results 06/18/17 03:47: pO2 219 H, VBG pH 7.39, VBG pCO2 43.0, VBG HCO3 26.0, VBG Total CO2 27.3, VBG O2 Sat (Calc) 100.2 H, VBG Base Excess 0.8, VBG Potassium 4.5, Glucose 119 H, Lactate 1.2, FiO2 21.0, Sodium 136.0, Chloride 105.0, Venous Blood Potassium 4.5 06/18/17 02:20: Sodium 140, Potassium 4.5, Chloride 103, Carbon Dioxide 26, Anion Gap 16, BUN 16, Creatinine 0.8, Est GFR ( Amer) > 60, Est GFR (Non- Af Amer) > 60, Random Glucose 119 H, Calcium 9.6, Total Bilirubin 0.9, AST 25, ALT 29, Alkaline Phosphatase 78, Total Protein 7.8, Albumin 4.4, Globulin 3.3, Albumin/Globulin Ratio 1.3, Amylase 114, Lipase 53 06/18/17 02:20: WBC 6.8, RBC 4.56, Hgb 14.4, Hct 40.8 L, MCV 89.5, MCH 31.6, MCHC 35.3, RDW 12.8, Plt Count 131, MPV 11.2 H, Gran % 74.4 H, Lymph % (Auto) 15.4 L, [place] % (Auto) 9.2 H, Eos % (Auto) 0.7 L, Baso % (Auto) 0.3, Gran # 5.02 , Lymph # 1.0 L, [place] # 0.6, Eos # 0.1, Baso # 0.02 - RAD Interpretation Radiology Orders: 06/18/17 02:07 ABD & PELVIS IV CONTRAST ONLY [CT] Stat - Medication Orders Current Medication Orders: Discontinued Medications Famotidine (Pepcid) 20 mg IVP STAT STA Stop: 06/18/17 02:22 Last Admin: 06/18/17 02:45 Dose: 20 mg IVP Administration Document 06/18/17 02:45 SC (Rec: 06/18/17 02:45 SC [id number]) Charges for Administration # of IVP Administrations 1 Sodium Chloride (Sodium Chloride 0.9%) 1,000 mls @ 999 mls/hr IV .Q1H1M STA Stop: 06/18/17 03:43 Last Admin: 06/18/17 03:45 Dose: 999 mls/hr eMAR Start Stop Document 06/18/17 03:45 SC (Rec: 06/18/17 03:45 SC [id number]) Intravenous Solution Start Date 06/18/17 Start Time 03:45 End Date 06/18/17 End time 04:45 Total Infusion Time 60 Morphine Sulfate (Morphine) 4 mg IVP STAT STA Stop: 06/18/17 02:43 Last Admin: 06/18/17 02:45 Dose: Ondansetron HCl (Zofran Inj) 4 mg IVP STAT STA Stop: 06/18/17 02:19 Last Admin: 06/18/17 02:45 Dose: 4 mg IVP Administration Document 06/18/17 02:45 SC (Rec: 06/18/17 02:45 SC [id number]) Charges for Administration # of IVP Administrations 1 Ondansetron HCl (Zofran Inj) 4 mg IVP STAT STA Stop: 06/18/17 02:43 Last Admin: 06/18/17 02:45 Dose: - PA / EARLY CHILDHOOD EDUCATION INSTRUCTOR / Resident Statement / has examined the patient and agrees with the treatment plan. <Gianni Amezquita - Last Filed: 06/18/17 04:55> Disposition/Present on Arrival - Present on Arrival History of DVT/PE: No History of Uncontrolled Diabetes: No Urinary Catheter: No History of Decub. Ulcer: No History Surgical Site Infection Following: None <Ivania Cordoba - Last Filed: 06/18/17 02:38> - Present on Arrival Any Indicators Present on Arrival: No History of DVT/PE: No History of Uncontrolled Diabetes: No Urinary Catheter: No History of Decub. Ulcer: No - Disposition Have Diagnosis and Disposition been Completed?: Yes Disposition Time: 04:38 Patient Plan: Discharge <Gianni Amezquita - Last Filed: 06/18/17 04:55> - Disposition Diagnosis: Enteritis Disposition: HOME/ ROUTINE Patient Problems: Current Active Problems Problem Status Onset Enteritis Acute Enteritis Acute Enteritis Acute Condition: IMPROVED Discharge Instructions (ExitCare): Enteritis (ED) Print Language: SYRIAN Additional Instructions: followup with a Swatch Checker. stop smoking!!!! you have signs of cirrhosis on your liver, likely from alcohol. Prescriptions: Dicyclomine [Dicyclomine HCl] 10 mg PO Q8 PRN #15 cap PRN Reason: Irritable Bowel Symptoms Loperamide HCl [Imodium A-D] 2 mg PO Q8 PRN #10 tablet PRN Reason: Diarrhea Ondansetron [Zofran] 4 mg PO Q8H PRN #12 tab PRN Reason: Nausea/Vomiting Referrals: Osbaldo Herrera MD [Primary Care Provider] - Follow up with primary Forms: [employer] (German)
[2017-06-18] MEDS ORDERED: DiphenhydrAMINE 50 mg/ml Inj IVP STA (02:18)
[2017-06-18 02:29] LABS: BASO # 0.02 K/mm3 (0.0-2.0); BASO % 0.3 % (0.0-3.0); EOS # 0.1 (0.0-0.7); EOS % 0.7 % (1.5-5.0); GRAN # 5.02 (1.4-6.5); GRAN % 74.4 % (50.0-68.0); HEMATOCRIT 40.8 % (42.0-52.0); LYMPH % 15.4 % (22.0-35.0); MEAN CELL VOLUME 89.5 fl (80.0-105.0); MEAN CORPUSCULAR HEMOGLOBIN 31.6 pg (25.0-35.0); MEAN CORPUSCULAR HGB CONC 35.3 g/dl (31.0-37.0); MEAN PLATELET VOLUME 11.2 fl (7.0-11.0); MONO # 0.6 (0.1-0.6); MONO % 9.2 % (1.0-6.0); RED CELL DISTRIBUTION WIDTH 12.8 % (11.5-14.5); WHITE BLOOD COUNT 6.8 10^3/ul (4.5-11.0)
[2017-06-18] MEDS ORDERED: Morphine 4 mg/ml ISec IVP STA (02:42)
[2017-06-18 02:43] LABS: ALB/GLOB RATIO 1.3 (1.1-1.8); ALKALINE PHOSPHATASE 78 U/L (38-126); ALT/SGPT 29 U/L (7-56); AMYLASE 114 U/L (35-125); AST/SGOT 25 U/L (17-59); BILIRUBIN,TOTAL 0.9 mg/dL (0.2-1.3); BLOOD UREA NITROGEN 16 mg/dL (7-21); CALCIUM 9.6 mg/dL (8.4-10.5); CARBON DIOXIDE 26 mmol/L (21-33); CHLORIDE 103 mmol/L (98-107); GFR AFRICAN-AMERICAN > 60; GLUCOSE,RANDOM 119 mg/dL (70-110); LIPASE 53 U/L (23-300); POTASSIUM 4.5 mmol/L (3.6-5.0); SODIUM 140 mmol/L (132-148); TOTAL PROTEIN 7.8 g/dL (5.8-8.3)
[2017-06-18] MEDS ORDERED: Sodium Chloride 0.9% 1,000 ML IV STA (02:43)
[2017-06-18 03:04] VITALS: BP 114/67; PULSE 78; O2SAT 95
[2017-06-18] MEDS ORDERED: Iohexol 350 MG/100 ML VIAL ONE (03:05)
--- NOTE | 2017-06-18 04:18 | CT ---
EXAM: CT Abdomen and Pelvis With Intravenous Contrast EXAM DATE/TIME: 06/18/2017 2:07 AM CLINICAL HISTORY: 72 years old, male; Pain; Abdominal pain; Generalized TECHNIQUE: Axial computed tomography images of the abdomen and pelvis with intravenous contrast. All CT scans at this facility use one or more dose reduction techniques, viz.: automated exposure control; ma/kV adjustment per patient size (including targeted exams where dose is matched to indication; i.e. head); or iterative reconstruction technique. Coronal and sagittal reformatted images were created and reviewed. CONTRAST: 96 mL of OMNI 350 administered intravenously. COMPARISON: CT - ABD PELVIS W/O PO OR IV CONT 12/24/2016 10:54:57 PM FINDINGS: The liver is nodular and heterogeneous similar to prior supportive of cirrhosis. The spleen is normal. The pancreas is normal. No gallstones. No hydronephrosis or perinephric stranding. There are fluid and stool filled small bowel loops some of which demonstrate prominent fold enhancement most notably in the left upper quadrant and right lower quadrant. There is no abrupt transition to suggest obstruction. The right colon is dilated with fluid. There is a combination of fluid and stool seen elsewhere throughout the colon. Scattered diverticuli are noted. The appendix is identified coronal images 54 through 63. It measures 4-5 mm which is within normal limits. The lumen is filled with fluid presumably secondary to the reflux from the large amount of fluid in the cecum. There are degenerative changes in the osseous structures. IMPRESSION: Small bowel loops distended with fluid and stool with prominent fold enhancement. Colon distended with fluid and stool. This combination of findings suggests enteritis. Cirrhosis.
[2017-06-18 04:25] LABS: VENOUS BLOOD GAS BASE EXCESS 0.8 mmol/L (0.0-2.0); VENOUS BLOOD PH 7.39 (7.32-7.43)
== END 2017-06-18 04:45 | disposition home or self-care (01) ==
LOC: ED 01:09
DX: K52.9 Noninfective gastroenteritis and colitis, unspecified (principal); Z91.19 Patient's noncompliance with other medical treatment and regimen
CPT/HCPCS: 74177; 80053; 82150; 82803; 83690; 85025; 96361; 96374; 96375; 99283; J2405; J7040; Q9967

== ENCOUNTER 2017-10-01 13:03 | Emergency (ER) | payer MEDICAID, MEDICARE, OTHER ==
[2017-10-01 13:03] VITALS: PULSE 71
[2017-10-01 13:05] VITALS: BMI 22.8
[2017-10-01 13:10] VITALS: RESP 18
[2017-10-01] MEDS ORDERED: Sodium Chloride 0.9% 1,000 ML IV STA (13:39)
--- NOTE | 2017-10-01 14:59 | ED PDOC ---
Arrival/HPI - General Chief Complaint: Cough, Cold, Congestion Time Seen by Provider: 10/01/17 13:27 Historian: Patient - History of Present Illness Narrative History of Present Illness (Text): 10/01/17 72 yo male w/ PMHx of alcohol abuse, smoker, enteritis, come in for evaluation of cold sx for past few days. Pt reports, "feels weak, dry cough, was unable to sleep last night due to cough". Otherwise, pt denies fever, chills, headache, dizziness, drooling, dysphagia, dyspnea, wheezing, abd. pain, N/V/D, back pain. Ambulate to Ed for evaluation, not in any apparent distress. Past Medical History - Provider Review Nursing Documentation Reviewed: Yes - Travel History Have you recently traveled outside [place] w/in the past 3 mons?: No - Past History Past History: No Previous - Infectious Disease Hx of Infectious Diseases: None - Tetanus Immunization Tetanus Immunization: Unknown - Past Medical History Past Medical History: No Previous - Cardiac Hx Cardiac Disorders: No Hx Pacemaker: No - Pulmonary Hx Respiratory Disorders: Yes Hx Bronchitis: Yes Hx Pneumonia: Yes - Neurological Hx Neurological Disorder: No Hx Paralysis: No - HEENT Hx HEENT Disorder: Yes (Wears glasses. Hx of left eye sx.) Hx Deafness: Yes ([place]) - Renal Hx Renal Disorder: No - Endocrine/Metabolic Hx Endocrine Disorders: No - Hematological/Oncological Hx Blood Disorders: No Hx Blood Transfusions: No Hx Blood Transfusion Reaction: No - Integumentary Hx Dermatological Disorder: No - Musculoskeletal/Rheumatological Hx Musculoskeletal Disorders: No - Gastrointestinal Hx Gastrointestinal Disorders: No Other/Comment: colon polyps,diverticulosis - Genitourinary/Gynecological Hx Genitourinary Disorders: No - Psychiatric Hx Psychophysiologic Disorder: Yes Hx Depression: Yes Hx Emotional Abuse: No Hx Physical Abuse: No Hx Substance Use: No - Surgical History Hx Eye Surgery: Yes Hx Orthopedic Surgery: Yes (Left foot sx.) Other/Comment: COLON POLYPS REMOVED, hernia - Anesthesia Hx Anesthesia: Yes Hx Anesthesia Reactions: No Hx Malignant Hyperthermia: No - Suicidal Assessment Feels Threatened In Home Enviroment: No Family/Social History - Physician Review Nursing Documentation Reviewed: Yes Family/Social History: No Known Family HX Smoking Status: Former Smoker Hx Alcohol Use: Yes Hx Substance Use: No Hx Substance Use Treatment: Yes (history of ETOH, no use x 1 year) Allergies/Home Meds Allergies/Adverse Reactions: Allergies oxycodone HCl [From Percocet] Allergy (Verified 06/18/17 01:30) RASH Review of Systems - Review of Systems Constitutional: Fatigue Eyes: Normal ENT: Sore Throat, Rhinorrhea Respiratory: Cough. absent: SOB, Sputum, Wheezing Cardiovascular: Normal. absent: Chest Pain, Palpitations Gastrointestinal: Normal. absent: Abdominal Pain, Diarrhea, Nausea, Vomiting Genitourinary Male: Normal. absent: Dysuria Musculoskeletal: Normal Skin: Normal. absent: Rash Neurological: Normal. absent: Headache, Dizziness Endocrine: Normal Hemo/Lymphatic: Normal Psychiatric: Normal Physical Exam Vital Signs Reviewed: Yes Vital Signs Temp Pulse Resp BP Pulse Ox 10/01/17 15:17 99.6 F 86 18 113/77 96 10/01/17 13:09 99.1 F 99 H 18 147/86 95 Temperature: Afebrile Blood Pressure: Normal Pulse: Regular Respiratory Rate: Normal Appearance: Positive for: Well-Appearing, Non-Toxic, Comfortable Pain Distress: Mild Mental Status: Positive for: Alert and Oriented X 3 - Systems Exam Head: Present: Atraumatic, Normocephalic Conjunctiva: Present: Normal Mouth: Present: Moist Mucous Membranes. No: Drooling Pharnyx: Present: ERYTHEMA (mild b/L). No: EXUDATE, TONSILS ENLARGED Nose (Internal): Present: Rhinorrhea (scant, clear B/L) Neck: Present: Trachea Midline. No: MIDLINE TENDERNESS, JVD, Bruit Respiratory/Chest: Present: Clear to Auscultation, Good Air Exchange. No: Respiratory Distress, Accessory Muscle Use Cardiovascular: Present: Regular Rate and Rhythm, Normal S1, S2. No: Murmurs Abdomen: Present: Normal Bowel Sounds. No: Tenderness, Distention, Peritoneal Signs, Rebound, Guarding Back: No: CVA Tenderness Upper Extremity: Present: Normal Inspection, Normal ROM Lower Extremity: Present: Normal ROM. No: Edema, Deformity Neurological: Present: GCS=15, Speech Normal, Normal Sensory Function, Norm Deep Tendon Reflexes Skin: Present: Warm, Dry, Normal Color. No: Rashes Psychiatric: Present: Alert, Oriented x 3, Normal Insight, Normal Concentration Medical Decision Making ED Course and Treatment: 10/01/17 Pt was OBS in ED for 3 hours and reports, "feeling better" On re-eval, pt is afebrile, hemodynamicaly stable. Non-toxic. Tolerate Po well in ED. Ambulatory in ED with stable gait. PulseOx 95% RA neck: Supple, (-) meningeal sign. Lungs: CTA B/L, BS equal B/L. CVS: (+)S1S2, reg. Abd: benign, (-) guarding, (-) rebound. Back: (-) CVA tenderness. Blood work review and appears normal,baseline. Pt has clinical findings c/w bronchitis. Pt advised. ref. to f/u with PMD In 2-3 days for e-eval. return if any new changes. - Lab Interpretations Lab Results: 10/01/17 14:55 10/01/17 14:55 Lab Results 10/01/17 14:55: Sodium 135, Potassium 3.7, Chloride 99, Carbon Dioxide 28, Anion Gap 12, BUN 11, Creatinine 0.7 L, Est GFR ( Amer) > 60, Est GFR ( Non-Af Amer) > 60, Random Glucose 100, Calcium 9.2, Total Bilirubin 1.0, AST 27 , ALT 28, Alkaline Phosphatase 64, Total Protein 7.7, Albumin 4.3, Globulin 3.4 , Albumin/Globulin Ratio 1.3, Lipase 74 10/01/17 14:55: WBC 3.6 L D, RBC 4.40, Hgb 13.9 L, Hct 39.7 L, MCV 90.2, MCH 31.6, MCHC 35.0, RDW 12.8, Plt Count 119 L, MPV 11.2 H, Gran % 65.8, Lymph % ( Auto) 18.5 L, [place] % (Auto) 14.3 H, Eos % (Auto) 0.8 L, Baso % (Auto) 0.6, Gran # 2.35, Lymph # 0.7 L, [place] # 0.5, Eos # 0.0, Baso # 0.02 10/01/17 13:30: Influenza Typ A,B (EIA) Negative for flu a/b Interpretation: No clinic. lab abnormalty - EKG Interpretation EKG Interpretation (Text): 10/01/17 13:47 SR@88/min, occasional PACs, RBBB, LAFB, no acute ST-T changes. Comparison: Similar to previous EKG (similar TO 05/05/17) - Medication Orders Current Medication Orders: Discontinued Medications Famotidine (Pepcid) 20 mg IVP STAT STA Stop: 10/01/17 13:40 Last Admin: 10/01/17 14:37 Dose: 20 mg IVP Administration Document 10/01/17 14:37 OCS (Rec: 10/01/17 14:[address] [facility] [id number] Charges for Administration # of IVP Administrations 1 Sodium Chloride (Sodium Chloride 0.9%) 1,000 mls @ 1,000 mls/hr IV .Q1H STA Stop: 10/01/17 14:38 Last Admin: 10/01/17 14:38 Dose: 1,000 mls/hr eMAR Start Stop Document 10/01/17 14:38 OCS (Rec: 10/01/17 14:[address] [facility] [id number][place] Intravenous Solution Start Date 10/01/17 Start Time 14:38 End Date 10/01/17 End time 15:38 Total Infusion Time 60 Ketorolac Tromethamine (Toradol) 30 mg IVP STAT STA Stop: 10/01/17 13:40 Last Admin: 10/01/17 14:37 Dose: 30 mg MAR Pain Assessment Document 10/01/17 14:37 OCS (Rec: 10/01/17 14:[address] [facility] [id number][place] Pain Reassessment Is this a pain reassessment? Yes Sleep Is patient sleeping during reassessment? No Presence of Pain Presence of Pain Yes Pain Scale Used Pain Scale Used Numeric Location Pain Location Body Preventive Medicine Physician Description Description Constant IVP Administration Document 10/01/17 14:37 OCS (Rec: 10/01/17 14:[address] [facility] [id number][place] Charges for Administration # of IVP Administrations 1 Ondansetron HCl (Zofran Inj) 4 mg IVP STAT STA Stop: 10/01/17 13:40 Last Admin: 10/01/17 14:37 Dose: 4 mg IVP Administration Document 10/01/17 14:37 OCS (Rec: 10/01/17 14:[address] [facility] [id number]) Charges for Administration # of IVP Administrations 1 Disposition/Present on Arrival - Present on Arrival Any Indicators Present on Arrival: No History of DVT/PE: No History of Uncontrolled Diabetes: No Urinary Catheter: No History of Decub. Ulcer: No History Surgical Site Infection Following: None - Disposition Have Diagnosis and Disposition been Completed?: Yes Diagnosis: Bronchitis, COPD (chronic obstructive pulmonary disease) Disposition: HOME/ ROUTINE Disposition Time: 16:04 Patient Plan: Discharge Condition: STABLE Discharge Instructions (ExitCare): Acute Bronchitis (ED), COPD (Chronic Obstructive Pulmonary Disease) (ED) Additional Instructions: ENCOURAGE FLUIDS TAKE MEDICATION PRESCRIBED FOLLOW UP WITH PMD IN 2-3 DAYS FOR RE-EVALUATION. RETURN TO ED IF ANY WORSENING OR NEW CHANGES. Prescriptions: Albuterol HFA [Ventolin HFA 90 mcg/actuation (8 g)] 1 puff IH Q6 #1 inhaler Azithromycin [Zithromax] 250 mg PO DAILY #4 tab Benzonatate [Tessalon Perle] 100 mg PO TID #14 capsule Prednisone [Deltasone] 40 mg PO DAILY #6 tablet Referrals: Osbaldo Herrera MD [Primary Care Provider] - Follow up with primary Forms: [employer] (Swedish)
[2017-10-01 15:11] LABS: BASO # 0.02 K/mm3 (0.0-2.0); BASO % 0.6 % (0.0-3.0); EOS % 0.8 % (1.5-5.0); GRAN # 2.35 (1.4-6.5); GRAN % 65.8 % (50.0-68.0); HEMOGLOBIN 13.9 g/dL (14.0-18.0); LYMPH # 0.7 (1.2-3.4); LYMPH % 18.5 % (22.0-35.0); MEAN CELL VOLUME 90.2 fl (80.0-105.0); MEAN CORPUSCULAR HEMOGLOBIN 31.6 pg (25.0-35.0); MEAN PLATELET VOLUME 11.2 fl (7.0-11.0); MONO # 0.5 (0.1-0.6); MONO % 14.3 % (1.0-6.0); RBC 4.4 10^6/uL (3.5-6.1); RED CELL DISTRIBUTION WIDTH 12.8 % (11.5-14.5); WHITE BLOOD COUNT 3.6 10^3/ul (4.5-11.0)
[2017-10-01 15:15] LABS: ALB/GLOB RATIO 1.3 (1.1-1.8); ALBUMIN 4.3 g/dL (3.0-4.8); ALT/SGPT 28 U/L (7-56); AST/SGOT 27 U/L (17-59); BLOOD UREA NITROGEN 11 mg/dL (7-21); CALCIUM 9.2 mg/dL (8.4-10.5); GFR AFRICAN-AMERICAN > 60; GFR NON-AFRICAN AMERICAN > 60; LIPASE 74 U/L (23-300)
[2017-10-01 15:19] VITALS: BP 113/77; PULSE 86; TEMP 99.6; O2SAT 96
[2017-10-01] MEDS ORDERED: Albuterol 0.083% Inhal Sol (2.5 mg/3 mL) UD IH STA (16:03)
--- NOTE | 2017-10-02 10:42 | CARD ---
APPROVED REPORT EKG Measurement Heart [id number] <Conclusion> Sinus rhythm with APC's RBBB LAD/LAHB NSSTW changes No change
== END 2017-10-01 16:55 | disposition home or self-care (01) ==
LOC: ED 13:03
DX: J44.9 Chronic obstructive pulmonary disease, unspecified (principal); Z87.891 Personal history of nicotine dependence
CPT/HCPCS: 80053; 83690; 85025; 87804; 93005; 96361; 96374; 96375; 99283; J1885; J2405; J7040

== ENCOUNTER 2017-10-03 07:45 | Emergency (ER) | payer MEDICARE ==
[2017-10-03 07:46] VITALS: PULSE 71; BMI 22.8
[2017-10-03] MEDS ORDERED: Sodium Chloride 0.9% 500 ML IV STA (09:34)
--- NOTE | 2017-10-03 10:04 | ED PDOC ---
Arrival/HPI - General Chief Complaint: Flu-like Symptoms Time Seen by Provider: 10/03/17 09:08 Historian: Patient, Family - History of Present Illness Narrative History of Present Illness (Text): 10/03/17 09:58 Pt is a 72 yo M who was seen and treated 2 days ago in the ED for bronchitis, c/ o weakness and vomiting x 1 day. Pt reports that he started taking the prescribed abx on Wednesday along with other symptmatic meds but no change in status. Pt reports bodyaches and non-productive cough causing him to gag and vomit. Pt reports not taking medication as directed and also takes Nyquil to sleep resulting in abdominal pain. He also reports not eating or drinking very much in the last 2 days. Denies SOB, CP, diarrhea, back pain, fever, or chills. Pt reports that he is only taking the antibiotic as he cannot afford the other recommended medications 10/03/17 16:36 Time/Duration: 1-3 hours Symptom Onset: Gradual Symptom Course: Unchanged Quality: Aching Severity Level: Mild, Moderate Activities at Onset: Rest, Light, Sleeping Context: Sitting, Standing, Walking, Home Past Medical History - Provider Review Nursing Documentation Reviewed: Yes - Travel History Have you recently traveled outside [place] w/in the past 3 mons?: No - Past History Past History: No Previous - Infectious Disease Hx of Infectious Diseases: None - Tetanus Immunization Tetanus Immunization: Unknown - Past Medical History Past Medical History: No Previous - Cardiac Hx Cardiac Disorders: No Hx Pacemaker: No - Pulmonary Hx Respiratory Disorders: Yes Hx Bronchitis: Yes Hx Pneumonia: Yes - Neurological Hx Neurological Disorder: No Hx Paralysis: No - HEENT Hx HEENT Disorder: Yes (Wears glasses. Hx of left eye sx.) Hx Deafness: Yes ([place]) - Renal Hx Renal Disorder: No - Endocrine/Metabolic Hx Endocrine Disorders: No - Hematological/Oncological Hx Blood Disorders: No Hx Blood Transfusions: No Hx Blood Transfusion Reaction: No - Integumentary Hx Dermatological Disorder: No - Musculoskeletal/Rheumatological Hx Musculoskeletal Disorders: No - Gastrointestinal Hx Gastrointestinal Disorders: No Other/Comment: colon polyps,diverticulosis - Genitourinary/Gynecological Hx Genitourinary Disorders: No - Psychiatric Hx Psychophysiologic Disorder: Yes Hx Depression: Yes Hx Emotional Abuse: No Hx Physical Abuse: No Hx Substance Use: No - Surgical History Hx Eye Surgery: Yes Hx Orthopedic Surgery: Yes (Left foot sx.) Other/Comment: COLON POLYPS REMOVED, hernia - Anesthesia Hx Anesthesia: Yes Hx Anesthesia Reactions: No Hx Malignant Hyperthermia: No - Suicidal Assessment Feels Threatened In Home Enviroment: No Family/Social History - Physician Review Nursing Documentation Reviewed: Yes Family/Social History: No Known Family HX Smoking Status: Former Smoker Hx Alcohol Use: Yes Hx Substance Use: No Hx Substance Use Treatment: Yes (history of ETOH, no use x 1 year) Allergies/Home Meds Allergies/Adverse Reactions: Allergies oxycodone HCl [From Percocet] Allergy (Verified 10/03/17 07:56) RASH Review of Systems - Review of Systems Constitutional: Normal, Fatigue Eyes: Normal ENT: Normal Respiratory: Cough, Sputum. absent: Normal, SOB, Wheezing, Other Cardiovascular: Normal Gastrointestinal: Nausea, Vomiting, Appetite Changes. absent: Normal, Abdominal Pain, Stool Changes, Constipation, Diarrhea, Hematochezia, Hematemesis , Anorexia, Food Intolerance, Other Genitourinary Male: absent: Normal, Dysuria, Frequency, Hematuria, Urinary Output Changes, Other Musculoskeletal: Normal. absent: Arthralgias, Back Pain, Neck Pain, Joint Swelling, Myalgias, Other Skin: Normal. absent: Rash, Pruritis, Skin Lesions, Laceration, Abscess, Ulcer , Cellulitis, Other Neurological: Normal Physical Exam Vital Signs Reviewed: Yes Vital Signs Temp Pulse Resp BP Pulse Ox 10/03/17 12:10 98 F 75 118/72 99 10/03/17 11:48 98.3 F 75 19 129/72 98 10/03/17 09:33 98.2 F 75 20 125/82 97 10/03/17 07:46 98.7 F 93 H 19 152/95 H 98 Temperature: Afebrile Blood Pressure: Normal Pulse: Regular Respiratory Rate: Normal Appearance: Positive for: Ill-Appearing, Uncomfortable. No: Well-Appearing, Non -Toxic, Comfortable, Unkept, Cachectic, Other Pain Distress: Mild Mental Status: Positive for: Alert and Oriented X 3, Agitated - Systems Exam Head: Present: Atraumatic, Normocephalic Pupils: Present: PERRL Conjunctiva: Present: Normal Ears: Present: Normal, NORMAL TM Mouth: Present: Moist Mucous Membranes. No: Dry, Drooling, Trismus, Normal Lips , Normal Tounge, Normal Teeth, Other Pharnyx: Present: Normal. No: ERYTHEMA, EXUDATE, TONSILS ENLARGED, Peritonsilar Swelling, Uvular Deviation, Muffled/Hoarse Voice, [place], Soft Palate/Uvular Edema, Other Nose (External): No: Atraumatic, Abrasion, Contusion, Laceration, Lesions, Other Nose (Internal): Present: Normal Inspection, No Active Bleeding, Moist Neck: Present: Normal Range of Motion Respiratory/Chest: Present: Clear to Auscultation, Good Air Exchange Cardiovascular: Present: Regular Rate and Rhythm, Normal S1, S2. No: Murmurs Abdomen: Present: Normal Bowel Sounds. No: Tenderness, Distention, Peritoneal Signs Back: Present: Normal Inspection Upper Extremity: Present: Normal Inspection. No: Cyanosis, Edema, Normal ROM, NORMAL PULSES, Tenderness, Swelling, Erythema, Neurovascularly Intact, Temperature Abnormalties, Capillary Refill < 2s, Deformity, Norm 2-Pt Discrimination, Other Lower Extremity: Present: Normal Inspection. No: Edema, CALF TENDERNESS, NORMAL PULSES, Cyanosis, Normal ROM, Salome's Sign, Tenderness, Swelling, Erythema, Deformity, Temperature Abnormalties, Neurovascularly Intact, Capillary Refill < 2 s, Other Skin: Present: Warm, Dry, Normal Color Lymphatic: No: Cervical Adenopathy, Axillary Adenopathy, Inguinal Adenopathy, Other Medical Decision Making ED Course and Treatment: 10/03/17 10:10 Pt is a 72 yo M who was seen and treated 2 days ago in the ED for bronchitis, c/ o weakness and vomiting x 1 day. Pt reports that he started taking the prescribed abx on Wednesday along with other symptmatic meds but no change in status. Impression: pt indicates that he has not been taking medication as directed and is now medicating with NyQuil at night to get sleep resulting in abdominal pain. Given his lack of food and water intake and bodyaches: 1. IVF 0.9% ns 500 cc @ 30 mins 2. Ketorolac 15 mg ivp once for bodyaches 3. monitor over next 45 mins Plan: Discussed medication use at home; advised to drink plenty of fluids, take meds on time, avoid OTC cold meds and f/u with PMD in a few days Reassessment Condition: Re-examined (Pt resting comfortably after receiving toradol 15 mg ivp and fluids. Will discharge with instructions to continue with abx, prednisone, pepcid, and inhaler, tessalon) - Medication Orders Current Medication Orders: Discontinued Medications Acetaminophen (Tylenol 325mg Tab) 650 mg PO Q6H STA Stop: 10/03/17 11:51 Last Admin: 10/03/17 12:06 Dose: Not Given Non-Admin Reason: Patient Refused MAR Pain/Vitals Document 10/03/17 12:06 GMI (Rec: 10/03/17 12:07 GMI [id number]) Pain Reassessment Is This A Pain ReAssessment? Yes Sleep Is patient sleeping during reassessment? No Presence of Pain Presence of Pain No Famotidine (Pepcid) 20 mg PO STAT STA Stop: 10/03/17 11:59 Last Admin: 10/03/17 12:08 Dose: 20 mg Sodium Chloride (Sodium Chloride 0.9%) 500 mls @ 999 mls/hr IV .Q31M STA Stop: 10/03/17 10:04 Last Admin: 10/03/17 10:00 Dose: 999 mls/hr eMAR Start Stop Document 10/03/17 10:00 GMI (Rec: 10/03/17 10:24 GMI [id number]) Intravenous Solution Start Date 10/03/17 Start Time 10:24 End Date 10/03/17 End time 10:24 Total Infusion Time 0 Ketorolac Tromethamine (Toradol) 15 mg IVP STAT STA Stop: 10/03/17 09:37 Last Admin: 10/03/17 10:24 Dose: 15 mg [facility] Pain Assessment Document 10/03/17 10:24 GMI (Rec: 10/03/17 10:25 GMI [id number]) Pain Reassessment Is this a pain reassessment? Yes Sleep Is patient sleeping during reassessment? No Presence of Pain Presence of Pain Yes Pain Scale Used Pain Scale Used Numeric Location Pain Location Body Site Generalized Description Description Constant Intensity of Pain at present 9 Pain Behavior Moaning Irritability Alleviating Factors/Management Position Change Techniques Alleviating Factors Medication IVP Administration Document 10/03/17 10:24 GMI (Rec: 10/03/17 10:25 GMI [id number]) Charges for Administration # of IVP Administrations 1 Re-Assess: MARIZA Pain Assessment Document 10/03/17 11:24 [place] (Rec: 10/03/17 12:08 [place] [id number]) Pain Reassessment Is this a pain reassessment? Yes Sleep Is patient sleeping during reassessment? No Presence of Pain Presence of Pain No - PA / TABLE INSPECTOR / Resident Statement MD/DO has reviewed & agrees with the documentation as recorded. MD/DO has examined the patient and agrees with the treatment plan. Disposition/Present on Arrival - Present on Arrival Any Indicators Present on Arrival: Yes History of DVT/PE: No History of Uncontrolled Diabetes: No Urinary Catheter: No History of Decub. Ulcer: No History Surgical Site Infection Following: None - Disposition Have Diagnosis and Disposition been Completed?: Yes Diagnosis: Bronchitis, Nausea Disposition: HOME/ ROUTINE Disposition Time: 13:00 Patient Plan: Discharge Condition: STABLE Discharge Instructions (ExitCare): Ondansetron (By mouth), How to Use a Metered -Dose Inhaler (ED), Acute Bronchitis (ED), How to Use a Nebulizer (ED) Additional Instructions: Dear Patient, You have been diagnosed with an upper respiratory infection and brochitis that responds best with taking your prescribed antibiotic on time and until completion. Drink plenty of fluids, get lots rest, take tylenol or ibuprofen for pain and fever. Please make sure you wash your hands frequently to avoid transmission of the virus to others. If you experience severe fever, pain, chest pain or shortness of breath of any other alarming symptoms, return to the emergency room immediately. Please follow up with your Primary Doctor in the next few days. All the best in your recovery. Prescriptions: Acetaminophen [8 Hour Pain Relief] 650 mg PO Q8 5 Days #15 tablet.er Referrals: Osbaldo Herrera MD [Primary Care Provider] - Follow up with primary Forms: [employer] ([place]rainian)
[2017-10-03 11:14] VITALS: PULSE 75
[2017-10-03 11:49] VITALS: RESP 19
[2017-10-03 12:11] VITALS: BP 118/72; TEMP 98; O2SAT 99
== END 2017-10-03 12:11 | disposition home or self-care (01) ==
LOC: ED 07:45
DX: J40 Bronchitis, not specified as acute or chronic (principal); R11.0 Nausea; Z87.891 Personal history of nicotine dependence
CPT/HCPCS: 96374; 99284; J1885; J7040

== ENCOUNTER 2019-02-07 14:41 | Emergency (ER) | payer OTHER ==
[2019-02-07 14:41] VITALS: PULSE 71
[2019-02-07 15:06] VITALS: BP 125/77; PULSE 74; RESP 18; TEMP 98; O2SAT 97; BMI 23.3
--- NOTE | 2019-02-07 16:59 | ED PDOC ---
Arrival/HPI - General Chief Complaint: Headache Time Seen by Provider: 02/07/19 16:47 Historian: Patient, Family (Sister) - History of Present Illness Time/Duration: Other (Approximately 2 weeks) Symptom Onset: Gradual Symptom Course: Unchanged Quality: Aching Severity Level: Severe Activities at Onset: Rest Associated Symptoms (Text): 02/07/19 16:56 Patient complains of approximately a 2-week history of occipital headache. No injury or trauma. No fever or chills. No URI symptoms. No sinusitis. No neck pain. No headache history. No dizziness or lightheadedness. No nausea no weakness. No numbness tingling or paresthesias. He reports that he was seen at another hospital emergency department last week and was given a prescription for ibuprofen 600 mg, but it is not helping. He reports that he had a CAT scan done but does not know the results. He has not followed up with his PMD. Past Medical History - Past History Past History: No Previous - Infectious Disease Hx of Infectious Diseases: None - Tetanus Immunization Tetanus Immunization: Unknown - Past Medical History Past Medical History: No Previous - Cardiac Hx Cardiac Disorders: No Hx Pacemaker: No - Pulmonary Hx Respiratory Disorders: Yes Hx Bronchitis: Yes Hx Pneumonia: Yes - Neurological Hx Neurological Disorder: No Hx Paralysis: No - HEENT Hx HEENT Disorder: Yes (Wears glasses. Hx of left eye sx.) Hx Deafness: Yes ([place]) - Renal Hx Renal Disorder: No - Endocrine/Metabolic Hx Endocrine Disorders: No - Hematological/Oncological Hx Blood Disorders: No Hx Blood Transfusions: No Hx Blood Transfusion Reaction: No - Integumentary Hx Dermatological Disorder: No - Musculoskeletal/Rheumatological Hx Musculoskeletal Disorders: No - Gastrointestinal Hx Gastrointestinal Disorders: No Other/Comment: colon polyps,diverticulosis - Genitourinary/Gynecological Hx Genitourinary Disorders: No - Psychiatric Hx Psychophysiologic Disorder: Yes Hx Depression: Yes Hx Emotional Abuse: No Hx Physical Abuse: No Hx Substance Use: No - Surgical History Hx Eye Surgery: Yes Hx Orthopedic Surgery: Yes (Left foot sx.) Other/Comment: COLON POLYPS REMOVED, hernia - Anesthesia Hx Anesthesia: Yes Hx Anesthesia Reactions: No Hx Malignant Hyperthermia: No - Suicidal Assessment Feels Threatened In Home Enviroment: No Family/Social History - Physician Review Nursing Documentation Reviewed: Yes Family/Social History: Unknown Family HX Smoking Status: Heavy Smoker > 10 Cigarettes Daily Hx Alcohol Use: Yes Frequency of alcohol use: Socially Hx Substance Use: No Hx Substance Use Treatment: Yes (history of ETOH, no use x 1 year) Allergies/Home Meds Allergies/Adverse Reactions: Allergies oxycodone HCl [From Percocet] Allergy (Verified 10/03/17 07:56) RASH Review of Systems - Physician Review All systems were reviewed & negative as marked: Yes - Review of Systems Constitutional: absent: Fatigue, Fevers Respiratory: absent: SOB, Cough Cardiovascular: absent: Chest Pain, Syncope Gastrointestinal: absent: Abdominal Pain, Nausea, Vomiting Neurological: Headache. absent: Dizziness, Focal Weakness, Gait Changes, Speech Changes, Facial Droop, Seizure Physical Exam Vital Signs Temp Pulse Resp BP Pulse Ox 02/07/19 15:05 98.0 F 74 18 125/77 97 Temperature: Afebrile Blood Pressure: Normal Pulse: Regular Respiratory Rate: Normal Appearance: Positive for: Well-Appearing, Non-Toxic, Uncomfortable Pain Distress: Mild Mental Status: Positive for: Alert and Oriented X 3 - Systems Exam Head: Present: Atraumatic, Normocephalic Pupils: Present: PERRL Extroacular Muscles: Present: EOMI Conjunctiva: Present: Normal Ears: Present: NORMAL TM, Normal Canal. No: Erythema, TM Bulging Mouth: Present: Moist Mucous Membranes Pharnyx: No: ERYTHEMA, EXUDATE, TONSILS ENLARGED Neck: Present: Normal Range of Motion. No: Meningeal Signs, MIDLINE TENDERNESS, Paraspinal Tenderness Upper Extremity: Present: Normal Inspection. No: Cyanosis, Edema Lower Extremity: Present: Normal Inspection. No: Edema Neurological: Present: GCS=15, CN II-XII Intact, Speech Normal, Motor Func Grossly Intact, Normal Sensory Function, Normal Cerebellar Funct, Gait Normal Skin: Present: Warm, Dry, Normal Color. No: Rashes Psychiatric: Present: Alert, Oriented x 3, Normal Insight, Normal Concentration Medical Decision Making ED Course and Treatment: 02/07/19 17:12 Nurse reported that the patient eloped prior to being medicated and prior to CAT scan. He left with his sister. - RAD Interpretation Radiology Orders: 02/07/19 16:55 HEAD W/O CONTRAST [CT] Stat - Medication Orders Current Medication Orders: Acetaminophen (Tylenol 325mg Tab) 975 mg PO STAT STA Stop: 02/07/19 16:56 Disposition/Present on Arrival - Present on Arrival Any Indicators Present on Arrival: No History of DVT/PE: No History of Uncontrolled Diabetes: No Urinary Catheter: No History of Decub. Ulcer: No History Surgical Site Infection Following: None - Disposition Have Diagnosis and Disposition been Completed?: Yes Diagnosis: Headache Disposition: ELOPEMENT - ER ONLY Disposition Time: 17:13 Patient Plan: Discharge Condition: GOOD Discharge Instructions (ExitCare): Headache, Adult Forms: [facility] ([place])
== END 2019-02-07 17:13 | disposition left against medical advice (07) ==
LOC: ED 14:41
DX: R51 Headache (principal)